=== PATIENT | male | born 1950 | race Caucasian/White ===

== ENCOUNTER 2025-02-23 06:12 | Day surgery (SDC) | payer MEDICARE, OTHER, SELFPAY | END 2025-02-23 10:38 | disposition home or self-care (01) | LOC: GI 06:12 | PROVIDERS: ATTENDING PHYSICIAN Internal Medicine Gastroenterology; FAMILY PHYSICIAN Internal Medicine Geriatric Medicine | DX: Z12.11 Encounter for screening for malignant neoplasm of colon (principal); K57.30 Diverticulosis of large intestine without perforation or abscess without bleeding; K64.8 Other hemorrhoids; Z85.038 Personal history of other malignant neoplasm of large intestine; Z98.0 Intestinal bypass and anastomosis status; D12.4 Benign neoplasm of descending colon | CPT/HCPCS: 45385; 88305 ==